=== PATIENT | female | born 1990 | race Hispanic/Latino ===

== ENCOUNTER 2021-03-07 00:50 | Inpatient (IN) | payer MEDICAID, OTHER, SELFPAY ==
[2021-03-07 01:25] VITALS: BMI 27.8
[2021-03-07] MEDS ORDERED: Penicillin G Potassium 5 MILL.UNITS VIAL ONE (01:45)
[2021-03-07] MEDS ORDERED: Butorphanol Tartrate 1 MG/ML VIAL SLOW IVP PRN (01:53)
[2021-03-07] MEDS ORDERED: Misoprostol 200 MCG TAB PR PRN (01:53)
[2021-03-07] MEDS ORDERED: Lidocaine 1% (PF) 30 ML VIAL SC PRN (01:53)
[2021-03-07] MEDS ORDERED: hydrALAZINE 20 MG/ML VIAL SLOW IVP PRN ×2 (01:53→12:48)
[2021-03-07] MEDS ORDERED: Acetaminophen 500 MG TAB PO PRN ×2 (01:53→13:24)
[2021-03-07] MEDS ORDERED: Promethazine HCl 25 MG/ML VIAL IM PRN (01:53)
[2021-03-07] MEDS ORDERED: Ondansetron PF 4 MG/2 ML Vial IVP PRN (01:53)
[2021-03-07] MEDS ORDERED: Ibuprofen 800 MG TAB PO PRN (01:53)
[2021-03-07] MEDS ORDERED: Penicillin G 2.5 MILL.units 2.5 MILL.UNITS in Premix Bag 1 BAG IVPB SCH (02:00)
[2021-03-07] MEDS ORDERED: Penicillin G Potassium 5 MILL.UNITS in Sodium Chloride 0.9% 100 ML IVPB SCH (02:00)
[2021-03-07] MEDS ORDERED: Lactated Ringer's 1,000 ML IV SCH (02:00)
[2021-03-07] MEDS ORDERED: NS w/ Oxytocin 30 units 500 ML IV SCH (02:00)
[2021-03-07 02:19] LABS: Hemoglobin 11.8 g/dL (12.0-15.5); Mean Corpuscular HGB CONC 32.6 g/dL (32.0-36.0); Mean Corpuscular Hemoglobin 28.9 pg (27.0-33.0); Mean Corpuscular Volume 88.5 fl (81.6-98.3); Mean Platelet Volume 10.4 fl (7.4-10.4); Platelet Count 240 10x3/uL (150-450); RBC Distribution Width 12.9 % (11.5-14.5); Red Blood Cell (RBC) Count 4.09 10x6/uL (3.90-5.03); White Blood Cell (WBC) Count 8.5 10x3/uL (3.5-10.5)
[2021-03-07] MEDS ORDERED: Morphine 4 MG/ML VIAL SLOW IVP PRN (02:29)
[2021-03-07 02:57] LABS: Syphilis Antibody Nonreactive (Nonreactive); Syphilis Antibody Index 0.05 S/CO (<1.00 Non-Reactive)
[2021-03-07 02:58] LABS: Hep B Surf Ag Non-Reactive S/CO (NonReactive)
[2021-03-07 03:01] LABS: HBSAg Index 0.19 S/CO (0-0.99)
[2021-03-07] MEDS: NS w/ Oxytocin 30 units 500 ML IV SCH ×2 (03:57→06:43)
[2021-03-07 04:11] LABS: SARS-CoV-2 NAA Rapid Test Not Detected (NotDetected)
[2021-03-07] MEDS ORDERED: Lanolin Ointment 7 GM TUBE TOP PRN (06:44)
[2021-03-07] MEDS ORDERED: Bisacodyl 10 MG SUPP PR PRN ×2 (06:44→12:48)
[2021-03-07] MEDS ORDERED: Preparation H Ointment 28 GM TUBE PR PRN (06:44)
[2021-03-07] MEDS ORDERED: Methylergonovine 0.2 MG/ML VIAL IM PRN (06:44)
[2021-03-07] MEDS ORDERED: Benzocaine-Menthol 82.5 ML CAN TOP PRN (06:44)
[2021-03-07] MEDS ORDERED: Milk Of Magnesia 30 ML UDCUP PO PRN ×2 (06:44→12:48)
[2021-03-07] MEDS ORDERED: Boostrix 0.5 ML (Tdap) VIAL IM ONE ×2 (06:44→12:48)
[2021-03-07] MEDS ORDERED: Ibuprofen 800 MG TAB PO SCH ×2 (07:15→14:00)
[2021-03-07] MEDS ORDERED: Ferrous Sulfate 325 MG TAB PO SCH (08:00)
[2021-03-07] MEDS ORDERED: Prenatal Vitamin 1 TAB PO SCH (09:00)
[2021-03-07] MEDS ORDERED: Docusate Calcium (SURFAK) 240 MG CAP PO SCH (09:00)
[2021-03-07] MEDS: Ibuprofen 800 MG TAB PO SCH ×2 (14:55→21:10)
[2021-03-07] MEDS: Ferrous Sulfate 325 MG TAB PO SCH (16:34)
[2021-03-07] MEDS: Docusate Calcium (SURFAK) 240 MG CAP PO SCH (21:10)
[2021-03-08] MEDS: Ibuprofen 800 MG TAB PO SCH ×3 (04:53→21:26)
[2021-03-08 07:38] LABS: #Monocytes 0.5 10x3/uL (0.0-1.1); #Neutrophils 4.5 10x3/uL (1.5-8.4); %Basophils 0.3 % (0.0-2.0); %Eosinophils 0.4 % (0.0-6.0); %Lymphocytes 32.1 % (18.0-47.0); %Monocytes 6.6 % (0.0-10.0); %Neutrophils 60.2 % (40.0-75.0); Hemoglobin 9.9 g/dL (12.0-15.5); Mean Corpuscular HGB CONC 32.5 g/dL (32.0-36.0); Mean Corpuscular Volume 89.4 fl (81.6-98.3); Mean Platelet Volume 10.8 fl (7.4-10.4); Platelet Count 208 10x3/uL (150-450); RBC Distribution Width 13.1 % (11.5-14.5); Red Blood Cell (RBC) Count 3.41 10x6/uL (3.90-5.03); White Blood Cell (WBC) Count 7.4 10x3/uL (3.5-10.5)
[2021-03-08] MEDS: Ferrous Sulfate 325 MG TAB PO SCH ×2 (08:42→17:06)
[2021-03-08] MEDS: Docusate Calcium (SURFAK) 240 MG CAP PO SCH ×2 (08:42→21:26)
[2021-03-08 21:08] VITALS: TEMP 98.2
[2021-03-09] MEDS: Ibuprofen 800 MG TAB PO SCH ×3 (05:01→16:58)
[2021-03-09 07:48] VITALS: BP 115/64
[2021-03-09] MEDS: Docusate Calcium (SURFAK) 240 MG CAP PO SCH (08:11)
[2021-03-09] MEDS: Ferrous Sulfate 325 MG TAB PO SCH ×2 (08:11→14:36)
[2021-03-09 08:59] LABS: #Eosinphils 0.1 10x3/uL (0.0-0.5); #Monocytes 0.4 10x3/uL (0.0-1.1); #Neutrophils 3.2 10x3/uL (1.5-8.4); %Basophils 0.3 % (0.0-2.0); %Lymphocytes 36.3 % (18.0-47.0); %Monocytes 6.7 % (0.0-10.0); Hemoglobin 10.7 g/dL (12.0-15.5); Mean Corpuscular HGB CONC 31.8 g/dL (32.0-36.0); Mean Corpuscular Hemoglobin 29.1 pg (27.0-33.0); Mean Corpuscular Volume 91.6 fl (81.6-98.3); Mean Platelet Volume 10.3 fl (7.4-10.4); Platelet Count 240 10x3/uL (150-450); RBC Distribution Width 13.2 % (11.5-14.5); Red Blood Cell (RBC) Count 3.68 10x6/uL (3.90-5.03); White Blood Cell (WBC) Count 5.8 10x3/uL (3.5-10.5)
[2021-03-09] MEDS ORDERED: Polyethylene Glycol 3350 17 GM Packet PO SCH (09:00)
[2021-03-09] MEDS ORDERED: Milk Of Magnesia 30 ML UDCUP PO SCH (09:00)
[2021-03-09] MEDS ORDERED: Preparation H HC 1% Cream 26 GM TUBE TOP SCH (09:00)
[2021-03-09] MEDS ORDERED: Preparation H Ointment 57 gram tube TOP SCH (21:00)
== END 2021-03-09 16:55 | disposition home or self-care (01) | DRG 806 ==
LOC: CSHLD/OP 00:50 → CSHLD 00:51 → CSHPED 08:38
PROVIDERS: ADMIT Student in an Organized Health Care Education/Training Program; ATTEND Student in an Organized Health Care Education/Training Program
PROC: 10E0XZZ Delivery of Products of Conception, External Approach (ICD-10-PCS; principal; 2021-03-07)
DX: O98.82 Other maternal infectious and parasitic diseases complicating childbirth (principal); D62 Acute posthemorrhagic anemia; Z37.0 Single live birth; Z20.822 Contact with and (suspected) exposure to COVID-19; B95.1 Streptococcus, group B, as the cause of diseases classified elsewhere; Z3A.39 39 weeks gestation of pregnancy; O90.81 Anemia of the puerperium
CPT/HCPCS: 36415; 85025; 85027; 86780; 86850; 86900; 86901; 87340; 99285; J2270; J2540; J2590; U0002